=== PATIENT | male | born 1985 | race Caucasian/White ===

== ENCOUNTER → 2021-02-21 16:09 | Outpatient (CLI) | payer BC, SELFPAY ==
--- NOTE | ~2021-02-21 | XR_ITS ---
EXAMINATION: XR ribs LT 2V w CXR 2V DATE: 02/21/2021 16:27 INDICATION: Pleurodynia. TECHNIQUE: Frontal and lateral views of the chest and 2 views on 3 radiographs of the left ribs were obtained. COMPARISON: Chest 2 views 01/03/2014 FINDINGS: CHEST TWO VIEWS: The chest demonstrates clear lungs without pneumonia, pleural effusion, or pneumotho rax. The heart size is normal. There is mild chronic anterior wedging of multiple lower thoracic vert ebral bodies. LEFT RIBS: There is no fracture. IMPRESSION: 1. No rib fracture. Reviewed, dictated and finalized at location A. IMPRESSION: 1. No rib fracture.
== END ==
PROVIDERS: PCP Family Medicine; Visit Provider Family Medicine
DX: R07.81 Pleurodynia (principal)
CPT/HCPCS: 71046; 71100

== ENCOUNTER 2022-10-23 01:35 | Day surgery (SDC) | payer OTHER, SELFPAY ==
[2022-10-16 12:52] VITALS: BMI 32.6
--- NOTE | 2022-10-16 12:54 | PC.NURSE ---
Report to the Outpatient Waiting Room, entrance under the green pavilion located off [facility], at time 0600 on date 10/23/22. Planned Procedure Time: 0730. Time changes happen often and if your time is changed the preop area will call you the afternoon before. - You and your visitor will be asked to self-screen and do not enter if you have any COVID symptoms. - A mask is optional within the hospital at this time. Patients may have clear liquids (water, carbonated beverages, clear teas, apple juice) until 3 hours prior to surgery with a maximum of 20 ounces. - No food from midnight until time of surgery Take the following medications with a SIP of water the morning of surgery: N/A DO NOT STOP ANY OF YOUR OTHER PRESCRIPTION MEDICATIONS PRIOR TO SURGERY EXCEPT THE FOLLOWING Medications to discontinue per physician: N/A Date to take last dose: N/A Please no make-up, nail belarusian, hairspray, perfume, deodorant, or body powder the day of surgery. No jewelry (including any body piercings) or valuables the day of surgery, leave them at home. Please take a shower or bath the night before, or the morning of, surgery with an antibacterial soap. Wear comfortable, loose fitting clothing. - Jewelry must be removed prior to entering the operating room. Rings and piercings that are not removed may be cut off. - The hospital will not accept responsibility for valuables. - Please leave all valuables, including medications, at home the day of surgery. If you are going home after surgery, a licensed frontload driver must drive you home. - NO public transportation without another adult if you receive anesthesia. - We recommend that an adult stay with you for 24 hours following discharge. - We also recommend that you do not drive, make important decision, drink alcoholic beverages, or take any drugs that were not prescribed by your health care provider for at least 24 hours after your discharge time. Follow any additional instructions given to you from your surgeon. If you or anyone in your household have experienced Covid symptoms in the past week, please notify your surgeon or the nurse liaison at the phone number below for possible testing. Telephone instructions given to PT Tay ADAM and asked if any additional questions and then verbalized understanding. Patient advised to call surgeon office or pre surgery nurse liaison [phone] if any additional questions.
[2022-10-23] VITALS (11 sets, daily range): BP systolic 100–124; BP diastolic 59–96; PULSE 66–96; RESP 10–16; TEMP 36.2–36.5; O2SAT 96–100; BMI 33.9
[2022-10-23] MEDS: LACTATED RINGERS 1,000 ML 30 ML IV CONT ×2 (06:45→10:48)
[2022-10-23 06:57] LABS: Urine Cotinine NEGATIVE
--- NOTE | 2022-10-23 07:05 | P.PNAN_ITS ---
Anes - Initial Pre Proc Eval Procedure: Operation Date: 10/23/22 07:30 Proposed Procedures p Excision and Liposuction Bilateral Gynecomastia - Kody Villegas MD Date/Time: 10/23/22 07:05 Surgeon: Kody Villegas MD Pre Op Diagnosis: gynecomastia Patient Data Age: 37 Gender: M Height: 1.73 m Weight: 97.52 kg Allergies Allergy/AdvReac Type Severity Reaction Status Date / Time codeine Allergy Unknown swollen Verified 10/16/22 12:51 face/throat swelling Penicillins Allergy Unknown Rash Verified 10/16/22 12:51 Home Medications Medication Instructions Recorded Confirmed Type No Home Medications 10/16/22 10/16/22 History Laboratory Tests 10/23/22 06:30 Cotinine Negative Patient hx anesthesia problems: none Family hx anesthesia problems: none Results Review: All pre-operative results and documents have been reviewed as part of the pre- operative evaluation. [facility] Past Medical History Medical History Excess skin Gout Renal lithiasis Weight loss Family History Family History Father Family history of cardiovascular disease Social History Social History Smoking status: Never smoker Second hand tobacco smoke exposure: No Alcohol intake: never Substance use: never Substance use type: does not use Living arrangements: with family Occupation/Education: occupation Additional occupation/education comments: [employer] Gender identity (if verbalized by the patient): Male Sexual Orientation (if Verbalized by the Patient): Straight or Heterosexual Spiritual care concerns: No Agree to blood products: Yes Anes - Eval Final PreProcedure Day of Procedure 10/23/22 07:05 Patient weight: obese Heart: regular rate and rhythm Lungs: clear to auscultation Airway: Mallampati scale class II Neurological: alert and oriented Last oral intake: >/= 8 hours ASA classification: II Emergent: no Anesthetic plan: proceed Anesthesia type and monitoring: general LMA and standard monitoring Results Review: All pre-operative results and documents have been reviewed as part of the pre- operative evaluation. Informed Consent: The patient's anesthetic plan and its attendant risks and benefits were discussed with the patient/family/POA. Questions were solicited and answers provided to the satisfaction of the patient/family/POA.
--- NOTE | 2022-10-23 07:07 | WPDHPUPDATE1 ---
History and Physical Update Update Date/Time: 10/23/22 07:07 History and Physical has been reviewed, including an updated exam of the patient. There are NO changes in the patient's condition. Risks, benefits, and alternatives have been discussed and questions answered. Patient agrees to proceed with procedure.
--- NOTE | 2022-10-23 07:07 | W.PM.PROC2 ---
Procedure Note - Detailed Date of Procedure 10/23/22 Pre-op Diagnosis gynecomastia Post-op Diagnosis Same Procedure Performed Excision / suction lipectomy for gynecomastia Surgeon Kody Villegas MD Anesthesia General Findings Tissue removed: Right 324.9 grams Left 326 grams Lipoaspirate: Right 400 cc Left 400 cc Description of Procedure Preoperatively the risks, benefits, alternatives were discussed in extensive detail. I want him to be very realistic about the risks involved as well as expectations. We discussed scar pattern in the planned approach. All questions were answered to him and his family satisfaction. Consent obtained. He was marked in the standing position with his verification. Patient was taken to the operating room placed supine on the operating room table. Anesthesia provided by anesthesiology and prepped and draped in a standard sterile fashion. Stab incision was made and used tumescent solution of bilateral chest. Once adequate for I am for hemostatic this suction lipectomy was completed with a 5 mm basket cannula based on S.A.F.E. technique based on preoperative planning, intraoperative observation come in rolling pinch test. This was supine as well as sitting to verify the contour. I verified my upper and lower markings that these would reach. I then marked out the areola and de-epithelialized inferior pedicle. This had been treated already with suction lipectomy as above with care taken to protect vascular supply. I excised the intervening soft tissue. This was tacked into place with 2-0 Vicryl to the fascia as well as the flaps. Again placed in a sitting position to verify my contour and positioning marked out the areola location. Placed supine. I did place bilateral 10 Roman drains. Closed using 2-0 Quill followed by 3-0 Stratafix in a running subcuticular 4-0 Monocryl. The new areola location was de-epithelized and then incised. Areola inset. Closed around the areola with 3-0 Monocryl and 4-0 Monocryl. Tissue glue is for final closure. Dressings were placed. He was woken taken to PACU without difficulty. All instrument sponge counts were correct at the end of the case. Estimated Blood Loss 75 Drains Yes (Bilateral roman) Packing No Pathology None sent Complications No immediate complications Condition Stable Disposition PACU
[2022-10-23] MEDS: ceFAZolin 2 GM/D5W 50 ML 2 GM/50 ML BAG IVPB (07:26)
[2022-10-23] MEDS: LACTATED RINGERS IRRIG 1,000 ML, LIDOCAINE HCL 1% LOCAL INJ 50 ML, EPINEPHrine HCL INJ ... INFILTRATE (07:26)
[2022-10-23] MEDS: fentaNYL CITRATE INJ (*CRX) 100 MCG/2 ML VIAL 25 MCG IV PUSH ×6 (11:18→12:35)
[2022-10-23] MEDS: ONDANSETRON INJ 4 MG/2 ML VIAL IV PUSH (12:19)
[2022-10-23] MEDS: oxyCODONE HCL (*CRX) 5 MG TAB IR PO (12:19)
== END 2022-10-23 13:30 | disposition home or self-care (01) ==
PROVIDERS: PCP Family Medicine; Visit Provider Surgery Plastic and Reconstructive Surgery
PROC: (CPT 19300; principal; 2022-10-23 07:30)
DX: Z41.1 Encounter for cosmetic surgery (principal); N62 Hypertrophy of breast; E66.9 Obesity, unspecified; Z68.33 Body mass index [BMI] 33.0-33.9, adult
CPT/HCPCS: 19300; 15877; 80307; A9270; J0171; J0690; J1100; J1170; J2250; J2405; J2704; J3010; J7120

== ENCOUNTER 2023-07-03 08:16 | Emergency (ER) | payer BC, SELFPAY ==
--- NOTE | 2023-07-03 08:19 | ED.URI ---
HPI - URI/Sore Throat General Chief Complaint: Upper Respiratory Infection Stated Complaint: Sore Throat Time Seen by Provider: 07/03/23 08:23 Source: patient, RN notes reviewed and old records reviewed Mode of arrival: ambulatory Limitations: no limitations History of Present Illness HPI Narrative: 37-year-old male presents to the [facility] with complaints of a sore throat that started Thursday Tried [id number] cold medicine Denies any other symptoms Onset (ago): day(s) (2) Treatments prior to arrival: cold medicine Related Data Home Medications Medication Instructions Recorded Confirmed No Home Medications 10/16/22 07/03/23 Allergies Allergy/AdvReac Type Severity Reaction Status Date / Time codeine Allergy Severe swollen Verified 07/03/23 08:21 face/throat swelling Penicillins AdvReac Mild Rash Verified 07/03/23 08:21 Review of Systems Review of Systems: All systems reviewed & are unremarkable except as noted in HPI and below Constitutional: Constitutional: Reports no additional constitutional complaints Eyes: Eyes: Reports no additional eye complaints ENT: Reports as per HPI and Reports sore throat Cardiovascular: Cardiovascular: Reports no additional cardiovascular complaints, Denies chest pain and Denies dyspnea Respiratory: Respiratory: Reports no additional respiratory complaints, Denies chest congestion, Denies cough and Denies dyspnea Gastrointestinal: Gastrointestinal: Reports no additional gastrointestinal complaints, Denies abdominal pain, Denies nausea and Denies vomiting Musculoskeletal: Musculoskeletal: Reports no additional musculoskeletal complaints Integumentary/Breasts: Skin/Breast: Reports system reviewed and no additional complaints, except as docu Neurologic: Reports system reviewed and no additional complaints, except as documented Psychiatric: Psychiatric: Reports no additional psychiatric complaints Allergic/Immunologic: Allergic/Immunologic: Reports no additional allergic/immunologic complaints [facility] Past Medical History Medical History Excess skin Gout Renal lithiasis Weight loss Family History Family History Father Family history of cardiovascular disease Social History Social History Smoking status: Never smoker Second hand tobacco smoke exposure: No Alcohol intake: never Substance use: never Substance use type: does not use Living arrangements: with family Occupation/Education: occupation Additional occupation/education comments: [employer] Gender identity (if verbalized by the patient): Male Sexual Orientation (if Verbalized by the Patient): Straight or Heterosexual Spiritual care concerns: No Agree to blood products: Yes Comments At the time of my signature, I reviewed and agree with the nursing past medical, surgical, social, and family history. There is no relevant family history pertinent to the patient complaint. Exam Const: General: cooperative, healthy appearing, comfortable, no acute distress, well developed, alert and well nourished Nutritional Appearance: well nourished Orientation/consciousness: patient oriented x3 Limitations: no limitations HENMT: Head: normal to inspection Ears: hearing grossly normal bilaterally, external ears normal, mastoids normal, no periauricular adenopathy and Abnormal EAC present excessive cerumen bilateral Face/Nose/Sinus: Normal external nose present, Normal nares present, Normal nasal mucous membranes and turbinates present, normal facial exam and face symmetric Face and sinus: normal facial exam and face symmetric Mouth: Yes Normal oral and palatal mucosa present, Yes lip normal, Yes tongue normal and Yes moist mucous membranes Throat: posterior oropharynx normal, uvula midline and postnasal drainage Eyes: General
[2023-07-03 08:28] VITALS: BP 120/84; PULSE 65; RESP 16; TEMP 36.6; O2SAT 100
== END 2023-07-03 08:46 | disposition home or self-care (01) ==
PROVIDERS: Emergency Provider Nurse Practitioner; PCP Family Medicine
DX: R09.82 Postnasal drip (principal); J02.9 Acute pharyngitis, unspecified
CPT/HCPCS: 87081; 87880; 99213; G0463